=== PATIENT | male | born 1985 | race Caucasian/White ===

== ENCOUNTER 2019-02-21 16:44 | Emergency (ER) | payer MEDICAID ==
[~2019-02-21] VITALS: Ht 172.7 cm; Wt 80.0 kg
[2019-02-21 16:46] VITALS: BP 140/90
[2019-02-21] MEDS ORDERED: BENZ-16 PO (17:29)
[2019-02-21] MEDS ORDERED: AZIT250T PO (17:29)
== END 2019-02-21 17:41 | disposition home or self-care (01) ==
LOC: ER 16:45
DX: J06.9 Acute upper respiratory infection, unspecified (principal); Z79.899 Other long term (current) drug therapy
CPT/HCPCS: 99283

== ENCOUNTER 2019-04-13 19:08 | Emergency (ER) | payer MEDICAID ==
[~2019-04-13] VITALS: Ht 167.6 cm; Wt 100.0 kg
[~2019-04-13 19:08] MED LIST: AZIT250T PO
[2019-04-13 19:11] VITALS: BP 145/98
[2019-04-13] MEDS ORDERED: ibuprofen tablet 400 MG TABLET PO ONE (20:45)
[2019-04-13 21:59] LABS: CLARITY,URINE CLEAR (Clear); COLOR,URINE YELLOW (Yellow); GLUCOSE, URINE NEGATIVE (Neg); KETONES,URINE TRACE mg/dl (Neg); LEUKOCYTE ESTERASE ,URINE NEGATIVE (Neg); NITRITES, URINE NEGATIVE (Neg); OCCULT BLOOD,URINE NEGATIVE (Neg); PROTEIN,URINE TRACE mg/dl (Neg); UROBILINOGEN,URINE 0.2 E.U/dL (0.2-1.0)
[2019-04-13 22:04] LABS: UA COLLECTION TYPE CLN CATCH MIDSTREAM
[2019-04-13 22:05] LABS: BACTERIA,URINE NONE SEEN /HPF (Neg); MUCUS STRANDS MODERATE /LPF (Neg); RBC,URINE NONE SEEN /HPF (0-2); SQUAMOUS EPITHELIAL CELL,UR FEW /LPF (FEW); WBC,URINE NONE SEEN /HPF (0-4)
== END 2019-04-13 22:29 | disposition home or self-care (01) ==
LOC: ER 19:09
DX: R07.81 Pleurodynia (principal); Z86.69 Personal history of other diseases of the nervous system and sense organs; Z79.899 Other long term (current) drug therapy
CPT/HCPCS: 71046; 81001; 99284

== ENCOUNTER 2019-05-12 00:54 | Emergency (ER) | payer MEDICAID ==
[~2019-05-12] VITALS: Ht 167.6 cm; Wt 75.0 kg
[2019-05-12] MEDS ORDERED: hydrocort. acetate/pramoxine 10gm bottle RC PRN (02:10)
[2019-05-12] MEDS ORDERED: HYDR30CR79 TOP (02:22)
[2019-05-12 02:52] VITALS: BP 134/82
== END 2019-05-12 02:45 | disposition home or self-care (01) ==
LOC: ER 00:55
DX: K62.89 Other specified diseases of anus and rectum (principal); R05 Cough; Z86.69 Personal history of other diseases of the nervous system and sense organs; Z79.899 Other long term (current) drug therapy
CPT/HCPCS: 99282

== ENCOUNTER 2020-03-03 19:57 | Emergency (ER) | payer MEDICAID ==
[~2020-03-03] VITALS: Ht 170.2 cm; Wt 79.0 kg
[~2020-03-03 19:57] MED LIST changes: +HYDR30CR79 TOP
[2020-03-03 20:06] VITALS: BP 143/97
[2020-03-03] MEDS ORDERED: AMOX-422 PO (20:53)
== END 2020-03-03 21:32 | disposition home or self-care (01) ==
LOC: ER 19:57
DX: H66.92 Otitis media, unspecified, left ear (principal); Z86.69 Personal history of other diseases of the nervous system and sense organs; Z79.2 Long term (current) use of antibiotics; Z79.899 Other long term (current) drug therapy
CPT/HCPCS: 99283

== ENCOUNTER 2020-12-23 15:51 | Emergency (ER) | payer MEDICAID ==
[~2020-12-23] VITALS: Ht 172.7 cm; Wt 89.3 kg
[2020-12-23 17:02] VITALS: BP 135/91
[2020-12-23] MEDS ORDERED: ketorolac tromethamine 15mg/ml inj. IM ONE (18:45)
[2020-12-23] MEDS ORDERED: IBUP-1984 PO (18:48)
== END 2020-12-23 20:56 | disposition home or self-care (01) ==
LOC: ER 15:52
DX: M79.672 Pain in left foot (principal); G40.909 Epilepsy, unspecified, not intractable, without status epilepticus; Z79.2 Long term (current) use of antibiotics; Z79.899 Other long term (current) drug therapy
CPT/HCPCS: 73630; 96372; 99283; J1885

== ENCOUNTER 2022-08-23 17:15 | Emergency (ER) | payer MEDICAID ==
[~2022-08-23] VITALS: Ht 170.2 cm; Wt 200.0 kg
[2022-08-23 19:45] VITALS: BP 139/83
== END 2022-08-23 19:46 | disposition home or self-care (01) ==
LOC: ER 17:16
DX: N48.89 Other specified disorders of penis (principal); Z79.899 Other long term (current) drug therapy
CPT/HCPCS: 99284